=== PATIENT | female | born 1965 | race Caucasian/White ===

== ENCOUNTER → 2017-05-09 | Outpatient (CLI) | payer BC ==
[~2017-05-09] MED LIST: BIRTH CONTROL PO; CELEXA20 MG PO; CENTRUM SILVER1 EAC4 PO; CLONAZEPAM 0.50.5 M1 PO; LAMICTAL100 MG PO; VITAMIN D-32000 UNIT PO
== END ==
LOC: RAD 15:29
DX: M25.571 Pain in right ankle and joints of right foot (principal)

== ENCOUNTER → 2017-08-30 | Outpatient (CLI) | payer BC | LOC: MRI 08-24 15:33 | DX: M19.011 Primary osteoarthritis, right shoulder (principal); M25.411 Effusion, right shoulder ==

== ENCOUNTER → 2018-01-26 | Outpatient (CLI) | payer BC | LOC: ULTRA 15:29 | DX: D25.9 Leiomyoma of uterus, unspecified (principal); N85.00 Endometrial hyperplasia, unspecified; N83.202 Unspecified ovarian cyst, left side ==

== ENCOUNTER → 2018-07-12 | Outpatient (CLI) | payer BC | LOC: RAD 06-29 07:11 | DX: Z12.31 Encounter for screening mammogram for malignant neoplasm of breast (principal) ==